=== PATIENT | female | born 1950 | race Caucasian/White ===

== ENCOUNTER 2023-04-28 01:34 | Emergency (ER) | payer OTHER ==
[~2023-04-28] VITALS: Ht 154.9 cm; Wt 77.1 kg
[2023-04-28] MEDS ORDERED: METFORMIN HYDR500 MG PO (01:40)
[2023-04-28] MEDS ORDERED: LISINOPRIL20 MG PO (01:41)
[2023-04-28] MEDS ORDERED: VITAMIN D3250 MCG PO (01:42)
== END 2023-04-28 03:15 | disposition home or self-care (01) ==
LOC: ED 01:34
DX: M25.562 Pain in left knee (principal); M25.561 Pain in right knee; R51.9 Headache, unspecified; E11.9 Type 2 diabetes mellitus without complications; I10 Essential (primary) hypertension; Z87.891 Personal history of nicotine dependence